=== PATIENT | female | born 1980 | race Caucasian/White ===

== ENCOUNTER 2024-08-25 08:36 | Outpatient (CLI) | payer MEDICAID, SELFPAY ==
[2024-08-25 09:09] LABS: Hemoglobin A1C 5.3 % (<5.7)
[2024-08-25 09:15] LABS: Calculated LDL 109 mg/dL (<100); Cholesterol 195 mg/dL (<200); HDL Cholesterol 53 mg/dL (>or=50); Triglyceride 165 mg/dL (<150)
== END 2024-08-25 08:37 | disposition home or self-care (01) ==
LOC: LBO 08:37
PROVIDERS: Visit Provider Obstetrics & Gynecology
DX: Z13.220 Encounter for screening for lipoid disorders (principal); Z13.1 Encounter for screening for diabetes mellitus
CPT/HCPCS: 36415; 80061; 83036

== ENCOUNTER 2025-02-28 02:05 | Outpatient (CLI) | payer MEDICAID, SELFPAY ==
--- NOTE | 2025-02-28 08:45 | DI.RAD_ITS ---
Exam(s) XR FOOT RT COMPLETE EXAM: XR FOOT RT COMPLETE CLINICAL HISTORY: right foot pain,M79.671. TECHNIQUE: 2D digital imaging was performed. Three views. COMPARISON: No exams were available for comparison FINDINGS: BONES: No acute fracture is present. No bony destructive lesion is seen. JOINTS: No dislocation present. No significant degenerative changes. The plantar arch is maintained. SOFT TISSUE: Normal. IMPRESSION: Unremarkable radiographs of the right foot. DATA REPOSITORY: RADIATION DOSE DELIVERED:
== END 2025-02-28 02:25 ==
LOC: DI 02:05
PROVIDERS: PCP Specialist/Technologist Athletic Trainer; Visit Provider Podiatrist
DX: M79.671 Pain in right foot (principal)
CPT/HCPCS: 73630